=== PATIENT | male | born 1960 | race Caucasian/White ===

== ENCOUNTER → 2019-09-23 | Outpatient (CLI) | payer OTHER ==
--- NOTE | 2019-09-23 09:36 | RAD ---
Examination: 3 views of the left knee HISTORY: History of left knee pain for one year COMPARISON: None available FINDINGS: Moderate joint space loss identified in the medial, lateral, patellofemoral compartments. Small knee joint effusion. Small osteophyte formation identified in the medial, lateral, patellofemoral compartments. IMPRESSION: 1. Moderate tricompartmental degenerative changes. 2. Small knee joint effusion. Electronically signed by: Cyril Estrella MD (09/23/2019 9:33 AM) [id number]
== END | disposition home or self-care (01) ==
LOC: RAD 08:57
PROVIDERS: ATTEND Nurse Practitioner Family
DX: M17.12 Unilateral primary osteoarthritis, left knee (principal); M25.462 Effusion, left knee; M25.762 Osteophyte, left knee
CPT/HCPCS: 73562